=== PATIENT | female | born 1945 | race Caucasian/White ===

== ENCOUNTER → 2021-10-17 09:20 | Outpatient (CLI) | payer MEDICARE, OTHER, SELFPAY ==
[2021-10-17 10:46] LABS: Add Manual Diff / Slide Review NO; Basophils Absolute Auto 0 /uL (0-100); Basophils Percent Auto 0.4 % (0-2); Eosinophils Absolute Auto 600 /uL (0-450); Eosinophils Percent Auto 6.6 % (2-4); Hematocrit 37.8 % (36-46); Hemoglobin 12.8 g/dL (12.0-16.0); Lymphocytes Absolute Auto 2000 /uL (1100-4500); Lymphocytes Percent Auto 22.2 % (25-40); Mean Corpuscular HGB Conc 33.7 % (30-36); Mean Corpuscular Hemoglobin 29.2 PG (26-34); Mean Corpuscular Volume 86.5 fL (80-100); Monocytes Absolute Auto 700 /uL (0-900); Monocytes Percent Auto 8.2 % (3-14); Neutrophils Absolute Auto 5500 /uL (1500-7000); Neutrophils Percent Auto 62.6 % (50-75); Platelet Count 284 X10^3/uL (150-400); Red Blood Cell Count 4.37 X10^6/uL (4.0-5.2); Red Cell Distribution Width 14.1 % (11.6-14.8); White Blood Cell Count 8.8 X10^3/uL (4.5-11.0)
[2021-10-17 10:54] LABS: Appearance Urine UA CLEAR; Bilirubin Urine UA NEGATIVE (NEGATIVE); Color Urine UA YELLOW; Glucose Urine UA TRACE g/dL (Negative); Ketones Urine UA TRACE (NEGATIVE); Leukocyte Esterase Urine UA TRACE (NEGATIVE); Nitrite Urine UA NEGATIVE (Negative); Occult Blood Urine UA NEGATIVE (Negative); Protein Urine UA TRACE (Negative); Specific Gravity Urine UA >=1.030 (1.000-1.035); Urobilinogen Urine UA 0.2 E.U./dL (0.2)
[2021-10-17 11:00] LABS: BUN Creatinine Ratio 20.5 (6-22); Blood Urea Nitrogen 18 mg/dL (7-17); Carbon Dioxide 26 mmol/L (22-32); Chloride 107 mmol/L (98-107); Estimated Glomerular Filt Rate > 60 mL/min (>60); Glucose 150 mg/dL (80-110); HEMOLYSIS < 15 (0-50); Potassium 4.1 mmol/L (3.4-5.1); Sodium 141 mmol/L (137-145)
[2021-10-17 11:01] LABS: Hemoglobin A1C% w Est Avg Glu 6.6 % (4.0-6.0)
[2021-10-17 11:09] LABS: Bacteria Urine None Seen; Culture Indicated Urine Cult Not Indicated; RBC Urine None Seen (0-5/HPF); Urine Comments Microscopic Normal; WBC Urine None Seen (0-5/HPF)
== END ==
PROVIDERS: PCP Family Medicine; Referring Provider Orthopaedic Surgery; Visit Provider Orthopaedic Surgery
DX: Z01.818 Encounter for other preprocedural examination (principal); R73.9 Hyperglycemia, unspecified; Z01.812 Encounter for preprocedural laboratory examination; N39.0 Urinary tract infection, site not specified
CPT/HCPCS: 36415; 80048; 81001; 83036; 85025; 93005; 93010

== ENCOUNTER → 2021-11-07 09:49 | Outpatient (CLI) | payer MEDICARE, OTHER, SELFPAY ==
[2021-11-07 11:38] LABS: COVID19 -Nasal RAPID Negative (Negative)
== END ==
PROVIDERS: PCP Family Medicine; Referring Provider Orthopaedic Surgery; Visit Provider Orthopaedic Surgery
DX: Z20.822 Contact with and (suspected) exposure to COVID-19 (principal)
CPT/HCPCS: 87635; C9803

== ENCOUNTER 2021-11-08 06:03 | Day surgery (SDC) | payer MEDICARE, OTHER, SELFPAY ==
[2021-11-07 07:31] VITALS: BMI 25.0
[2021-11-08] VITALS (14 sets, daily range): BP systolic 109–173; BP diastolic 48–70; PULSE 55–73; RESP 12–20; TEMP 35.3–36.9; O2SAT 90–100; BMI 25.0
--- NOTE | 2021-11-08 06:40 | DI.RAD.S_ITS ---
PROCEDURE: XR HIP W PEL IF DONE LT 2V INDICATIONS: LEFT ANTERIOR HIP TECHNIQUE: 4 views of the hip were acquired. COMPARISON: None. FINDINGS: Intraoperative fluoroscopic views demonstrate total left hip replacement. IMPRESSION: Total left hip replacement. Dictated by: Rich Harrison M.D. on 11/08/2021 at 11:19 Approved by: Rich Harrison M.D. on 11/08/2021 at 11:20
[2021-11-08] MEDS: ACETAMINOPHEN 325 MG TABLET 975 MG PO (06:59)
[2021-11-08] MEDS: PREGABALIN 75 MG CAPSULE PO (06:59)
[2021-11-08] MEDS: CELECOXIB 200 MG CAPSULE PO (07:00)
[2021-11-08] MEDS: VANCOMYCIN 1,000 MG/200 ML PIGGYBACK 200 MG IV (07:06)
[2021-11-08] MEDS: LACTATED RINGERS 1,000 ML 42 ML IV ×2 (07:07→10:07)
--- NOTE | 2021-11-08 07:32 | PM.PREOP ---
Pre-operative Note COVID-19 COVID-19 status: Negative Interval Note History & Physical reviewed/Exam performed by Physician: Yes Changes to H&P: No
--- NOTE | 2021-11-08 07:33 | P.OP_ITS ---
Operative Date/Time/Diagnoses Date of procedure: 11/08/21 Time of procedure: 07:55 Pre-op diagnosis: left hip OA Post-op diagnosis: same Procedure & Clinicians Procedure: left total hip arthroplasty, anterior approach Same procedure as scheduled: Yes Indications: The patient has had progressively worsening left hip pain with radiographic lucy nges consistent with arthritis. Non-operative management has failed and the patient has requested total hip replacement. The risks, benefits and alternatives to surgery were discussed with the patient prior to proceeding. Risks discussed included, but were not limited to, failure to relieve pain, leg length discrepancy, dislocation, stiffness, infection, nerve damage, deep venous thrombosis, pulmonary embolism, stroke, coma, heart attack, permanent paralysis and , as well as the potential need for eventual revision of the prosthetic. Surgeon: Angella Chow [employer] Developer: Itz Robles Anesthesia Type: General and Spinal Operative Notes Findings: Severe left hip osteoarthritis with mild protrusio, good stability, adequate bone Closure Type: primary Specimen(s): none sent Prosthetic devices, grafts, tissues, transplants, or devices: Chow and nephew size 54 cup,one 6.5 mm screw, 36 x 54 neutral poly liner, 36- 3 Oxinium head, size 6 standard offset anthology Estimated Blood Loss (mL): 250 Blood products transfused: none Procedure in detail: The patient was brought to the operating room. Patient was carefully positioned in the supine position. Time-out was performed and antibiotics were given. Anesthesia was induced. She was positioned in the on the table in order to allow hyperextension of the hip. The left lower extremity was prepped and draped in a standard sterile fashion. An anterior left hip incision was made 1 fingerbreadth lateral to the anterior superior iliac spine and extended distally towards the greater trochanter. Dissection was carried out through skin and subcutaneous tissues. Superficial hemostasis was achieved. The fascia over the tensor fascia davina was defined and incised with a knife. Two Allis clamps were used to grasp the fascia. Tensor fascia davina was retracted laterally. A gelpi retractor was placed. Dissection was carried out down along the neck. The circumflex vessels were carefully identified and cauterized with the Aqua Mantis. There was good visualization of the femoral neck. A Cobra was placed superior to the neck and the gluteus fibers were carefully stripped from that superior aspect of the capsule. A 2nd retractor was placed along the inferior aspect of the neck. The rectus insertion along the capsule was partially released. A 3rd retractor that was then gently placed over the rim of the acetabulum under the rectus. Capsule was carefully incised and released from the intertrochanteric line circumferentially superior to the mid sagittal line and inferiorly to the mid sagittal line until the lesser trochanter was palpable. A tag stitch was placed both in the superior and inferior limb of the capsular insertion. Along the acetabulum capsule was also released up to the mid sagittal 12:00 position. A portion of the labrum was resected. A saw was used to perform an osteotomy at the level of the intertrochanteric line and the junction of the superior femoral neck leaving approximately 1 finger breath of residual inferior neck above the lesser trochanter. A 2nd cut was made along the femoral neck at the base of the head and a napkin ring of neck was removed. Corkscrew was placed in the femoral head and the head was removed without difficulty. Retractors were then repositioned around the acetabulum. Residual labrum was resected and additional osteophytes were removed. A reamer that was 4 mm below the templated size was placed by hand in the acetabulum and it was reamed to centralize the acetabulum. It was then reamed up to 2 under the templated size and fluoroscopy was brought in to confirm the position of the reaming and depth of reaming. I reamed 1 under the anticipated size. A trial cup was placed and noted that it was appropriately sized and fluoroscopy confirmed position and depth. The component was open and inserted without difficulty fluoroscopic imaging was used to confirm that the cup had been adequately seated and was well positioned. It was further stabilized with a single screw. Neutral poly liner was placed. The cup was tested and noted to be stable. Attention was then directed to the femur. The femur was gently hyperextended additional capsular release was performed as needed in order to allow adequate visualization of the proximal femur with elevation of the femur. Patient was placed in a hyperextended slightly adducted position with maximum external rotation. Box osteotome was used to check for any residual neck as well as sclerotic bone along the trochanter. [place] pepper was placed in the femur. Additional broaching was performed. Canal finder was used to determine the alignment of the canal and position. Size 1 broach was placed. The canal was then appropriately broached up to the templated size as long as there was adequate stability of the broach and serial advancement of the broach without excessive impingement. Specific attention was directed at avoiding varus attempting to direct the distal aspect of the broach more anteriorly and avoiding excessive anteversion. Trial reduction showed acceptable range of motion, good stability, no posterior impingement, hoahaoism of leg length and appropriate lateral shuck. I also hyperflexed the hip and checked that there was no impingement anteriorly and there was good stability with flexion, adduction and internal rotation. Marcaine and Exparel were injected. The stem was placed without difficulty. Repeat trial reduction and x-ray showed acceptable overall position, length, and no evidence of the femoral fracture. Final head was placed. Wound was meticulously irrigated with normal saline. The hip was reduced and additional Exparel and Marcaine were injected. The capsule was closed with interrupted nonabsorbable sutures. The fascia of the tensor was closed with interrupted and running Vicryl. No drain was placed. Any tensor fascia davina muscle that appeared to be contused or injured which was a minimal amount was carefully resected. Capsule around the tensor was injected with Exparel and Marcaine. The skin was closed with barbed stitches for the subcutaneous tissue and skin. We also used surgical glue. The wound was dressed sterilely. Brief Betadine soak was also used and was meticulously irrigated with normal saline. Patient was transferred to recovery room in satisfactory condition. Complications: none Post-operative Condition: stable Disposition: Acute Care Plan for aftercare: The patient will be maintained on a standard total hip replacement protocol with weight bearing as tolerated and anterior hip precautions. The patient will receive Aspirin and sequential compression devices for DVT prophylaxis. The patient will be discharged home when safe for the home environment.
--- NOTE | 2021-11-08 07:36 | SUR.PREOP ---
informed Dr. Chow of pt's allergy to PCN and pharmacy aware.
[2021-11-08] MEDS: CEFAZOLIN 2 GM/20 ML SYRINGE IV ×3 (07:55→23:51)
[2021-11-08] MEDS: TRANEXAMIC ACID 1,000 MG VIAL 1000 MG INJ ×2 (08:10→10:21)
--- NOTE | 2021-11-08 08:32 | SUR.OPER ---
Supine on padded [place] table with bilateral legs secured in padded positioning boots and wrapped in coban and suspended in positioning spars, operative leg in traction per surgeon. Head on one pillow. Arm on non-operative side secured on padded armboard <90 degrees abduction. Arm on operative side padded and resting across chest then secured with tape over sheet. Padded perineal post in place per surgeon.
[2021-11-08] MEDS: BUPIVACAINE LIPOSOME 266 MG/20 ML VIAL INJ (09:10)
[2021-11-08] MEDS: BUPIVACAINE 0.25% (PF) 60 ML, EPINEPHrine 0.3 MG INJ (09:23)
[2021-11-08] MEDS: SODIUM CHLORIDE IRRIG SOLUTION 250 ML, POVIDONE-IODINE SPONGE STICKS 1 APPLIC IRR (10:22)
--- NOTE | 2021-11-08 11:00 | DI.RAD.S_ITS ---
PROCEDURE: XR HIP W PEL IF DONE LT 2V INDICATIONS: LEFT TOTAL HIP TECHNIQUE: AP pelvis and lateral view of the left hip acquired. COMPARISON: [facility], NANDINI, XR HIP W PEL IF DONE LT 2V, 11/08/2021, 9:40. FINDINGS: Bones: Patient is status post left hip arthroplasty, with hardware components in expected positions. The hip joint appears congruent. The visualized bony structures appear intact. Note is made of prior right hip arthroplasty. Soft tissues: Overlying postoperative changes are noted. No suspicious soft tissue densities. IMPRESSION: Left hip arthroplasty with prosthesis in anatomic alignment. Dictated by: Sera Cornell M.D. on 11/08/2021 at 13:48 Approved by: Sera Cornell M.D. on 11/08/2021 at 13:49
--- NOTE | 2021-11-08 11:20 | SUR.PHASEI ---
Assumed care from SONIA Rodriguezay obtained, pt denied need for pain meds. Report called, pt transported up to room.
[2021-11-08] MEDS: LACTATED RINGERS 1,000 ML 125 ML IV ×2 (13:27→20:48)
--- NOTE | 2021-11-08 14:10 | PT.IIE ---
Current Diagnoses Unilateral primary osteoarthritis, left hip (11/08/21) Surgery Performed Operation Date: 11/08/21 07:45 Actual Procedures p Total Hip Arthroplasty/Anterior Approach(Left) - Angella Chow MD Medical History (Last Updated 11/07/21 @ 08:17 by Sarah Hernnadez RN) Acid reflux Arthritis Breast cancer (2001) Difficulty swallowing HTN (hypertension) Hx of thyroid irradiation (~2010) Myocardial infarction Osteoarthritis Polio Scoliosis Thyroid disease Physical Therapy Inpatient Evaluation/Re-Eval M1 PT/OT-IP Prior Functional Status Start: 11/08/21 15:32 Freq: NEEDED Status: Active Protocol: Document 11/08/21 14:10 AB (Rec: 11/08/21 15:45 AB [id number]) Medical Review Prior Functional Status Medical History Reviewed Yes Communication able to make needs known Mobility and Gait pt stated that she is modified independent with all mobiltiies and ambulation without AD but uses a SPC for long distance mobility Social History Household Members spouse Living Arrangements House Number of Floors (Floors) One Floor Number of Stairs To Enter/Railing? 2 steps without rails (has 2 bars on the edge of the door) Home Environment Standard Height Toilet,Walk in Shower Home Equipment Front Wheel Walker,Straight Cane,Raised Toilet Seat w/ Armrests,Shower Seat without Backrest,Hand Held Shower,Grab Bars In Shower M2 PT-IP Current Condition Start: 11/08/21 15:32 Freq: NEEDED Status: Active Protocol: Document 11/08/21 14:10 AB (Rec: 11/08/21 15:45 AB [id number]) Physical Therapy Current Condition Current Condition Evaluation Date 11/08/21 Treatment Diagnosis s/p L MISBAH anterior approach; difficulty in walking Onset Date 11/08/21 M3 PT-IP Subjective Start: 11/08/21 15:32 Freq: NEEDED Status: Active Protocol: Document 11/08/21 14:10 AB (Rec: 11/08/21 15:45 AB [id number]) Subjective Physical Therapy Visit Type Type Initial Evaluation Visit Start Time 14:10 Visit Stop Time 14:56 Total Visit Minutes 46 Number of LEACHER Visits 0 Physical Therapy Visit Comments Patient Comments agreeable to do PT Therapy Pain Assessment Pain Present Pain Present Denied Pain M4 PT-IP Mobility and Gait Start: 11/08/21 15:32 Freq: NEEDED Status: Active Protocol: Document 11/08/21 14:10 AB (Rec: 11/08/21 15:45 AB [id number]) PT-Bed Mobility Assessment Supine to Sit Supine to Sit Maximum Assistance,1 Person Assistance Sit to Supine Sit to Supine Moderate Assistance,1 Person Assistance PT-Transfer Assessment Sit to and From Stand Sit to and from Stand Minimal Assistance,1 Person Assistance,Use of Upper Extremities Equipment Transfer Assistive Device Gait Belt,Front Wheeled Walker Orthotic/Prosthetic Devices or Brace: No Comments Mobility Comments educated pt on hip precautions anterior. pt completed supine to sit max A and max cues. stated that she had L mastectomy before with LUE lymphedema and had difficulty pushing with LUE. Initial c/o dizziness but dissipated. BP: 135/56. able to sit on EOB SBA. pt stated that L hip anterior thigh sensation is less. completed sit to stand min A and cues. ambulated in room ~ 30 ft using FWW mod A with LOB x 1. pt stated that she just felt her LLE was wobbly. pt requested to go back to bed. completed sit to supine min A with LE elevation . positioned pt in bed. call light able table placed within reach. Gait Assessment Gait Gait Assistance Required: Moderate Assistance,1 Person Assist Distance (Feet) 30 Able to Maintain Weight Bearing Status Yes During Gait Assistive Devices Assistive Device Gait Belt,Front Wheeled Walker Orthotic/Prosthetic Devices or Brace: No Gait Deviations General Gait Pattern Antalgic,Decreased Stride Length,Decreased Feet Clearance Factors Limiting Gait Function Factors Limiting Gait Function Decreased Activity Tolerance, Decreased Sensation,Decreased Strength,Difficulty Following Directions,Limited Range of Motion,Poor Balance,Poor Safety Awareness PT-Balance Assessment Sitting Balance and Reactions Static Sitting Balance Ability Good Dynamic Sitting Balance Ability Good Standing Balance and Reactions Static Standing Balance Ability Fair Dynamic Standing Balance Ability Fair Device Used FWW M5 PT-IP Objective Assessments Start: 11/08/21 15:32 Freq: NEEDED Status: Active Protocol: Document 11/08/21 14:10 AB (Rec: 11/08/21 15:45 AB [id number]) Orientation Orientation/Cognition Level of Alertness Alert Orientation Name,Age,Birthday,Month,Date, Year,Day of Week,Place, Situation Safety Awareness Decreased Safety Awareness Memory Description No Deficits Noted Gross Range of Motion Lower Extremity ROM Assessment Within Functional Limits Strength Lower Extremity Strength Assessment Left Impaired Hip 3+/5 Knee 4-/5 Coordination Assessment Gross Coordination Gross Coordination WNL Sensation Assessment Sensation Gross Sensation Left LE Impaired Light Touch Impaired Sensation Description Numbness Muscle Tone Muscle Tone WNL Yes M6 PT-IP Treatment Start: 11/08/21 15:32 Freq: NEEDED Status: Active Protocol: Document 11/08/21 14:10 AB (Rec: 11/08/21 15:45 AB [id number]) Physical Therapy Treatment Education Education Provided Precautions,Weight Bearing Status,Post-Op Packet,Safety M7 PT-IP Assessment and Plan Start: 11/08/21 15:32 Freq: NEEDED Status: Active Protocol: Document 11/08/21 14:10 AB (Rec: 11/08/21 15:45 AB [id number]) PT Summary Assessment and Plan Potential Rehabilitation Potential Good Status of Condition at Evaluation Evolving Summary Impairments Pain,ROM,Strength,Balance, Coordination,Sensation,Tone, Cognition,Bed Mobility, Transfers,Gait,Activity Tolerance Assessment Summary pt requiring max A with bed mobility, mod A for ambulation using FWW. pt plans to go home with spouse to assist her . caregiver training set up tomorrow 1030 am. will continue to assess progress. Goals Bed Mobility Goal Independent Transfer Goal Independent,Front Wheeled Walker Gait Goal Independent,Front Wheel Walker Gait Distance 200 Other Goals up/down 2 steps using SPC/SOCIAL WORK FACULTY MEMBER min A Days to Meet Goals 5 Frequency of Treatment Frequency Of Treatment Twice a Day Treatment Plan Physical Therapy Treatment Plan Bed Mobility Training,Transfer Training,Gait Training, Therapeutic Exercise,Balance Retraining,Post Op Education, Discharge Planning,Hot or Cold Pack,Neuromuscular Re-ed, Coordination Retraining,Manual Therapy Precautions Anterior Hip Precautions No Hip Extension,No Hip External Rotation Weight Bearing Status Weight Bearing Status Weight Bear as Tolerated Allowed Weight Bearing Amount (enter % LLE WBAT or #) (%) Recommendations To Nursing Amount of Assist Needed 1 Person Assist Discharge Recommendations PT Discharge Recommendations Home with Assistance, Outpatient PT Transportation Needs at Discharge Private Vehicle
[2021-11-08] MEDS: lisinopriL 20 MG TABLET PO (16:20)
[2021-11-08] MEDS: IBUPROFEN 400 MG TABLET PO ×2 (16:20→22:17)
[2021-11-08] MEDS: carvediloL 12.5 MG TABLET 25 MG PO (20:46)
[2021-11-08] MEDS: DOCUSATE 100 MG CAPSULE PO (20:47)
[2021-11-08] MEDS: AMLODIPINE 5 MG TABLET PO (20:47)
[2021-11-08] MEDS: ASPIRIN EC 81 MG TABLET PO (20:47)
[2021-11-08] MEDS: ACETAMINOPHEN 325 MG TABLET 650 MG PO (22:16)
[2021-11-09 04:52] LABS: Hematocrit 29.3 % (36-46)
[2021-11-09] MEDS: IBUPROFEN 400 MG TABLET PO (05:13)
[2021-11-09] MEDS: ACETAMINOPHEN 325 MG TABLET 650 MG PO (05:13)
[2021-11-09 05:17] VITALS: BP 168/61; PULSE 72; RESP 18; TEMP 36.3; O2SAT 96
--- NOTE | 2021-11-09 07:54 | PM.DS.1 ---
History of Present Illness History of Present Illness Date Patient Seen: 11/09/21 Time Patient Seen: 07:55 Chief complaint: Hip pain Narrative: Patient states her hip pain is mild. Denies fever or chills. No nausea vomiting. Patient did well with physical therapy yesterday afternoon. Discharge Providers Provider Discharge Date: 11/09/21 Primary care physician: Jefe Leal MD Consults: 11/08/21 06:40 Consult to Anesthesiology Routine Comment: Consulting Provider: Anesthesiologist Reason for consultation: Regional block for post operative pain control 11/08/21 12:36 Consult to Discharge Planning Routine Comment: Consult to Physical Therapy Evaluate & Treat Comment: Physician Instructions: post op MISBAH protocol Consult to Respiratory Therapy Evaluate & Treat Comment: Physician Instructions: Evaluate and treat Discharge provider: Itz Robles PA-C Summary Hospital Course Discharge Diagnosis: Left hip osteoarthritis Hospital Course: left total hip arthroplasty, anterior approach Same procedure as scheduled: Yes Indications: The patient has had progressively worsening left hip pain with radiographic changes consistent with arthritis. Non-operative management has failed and the patient has requested total hip replacement. The risks, benefits and alternatives to surgery were discussed with the patient prior to proceeding. Risks discussed included, but were not limited to, failure to relieve pain, leg length discrepancy, dislocation, stiffness, infection, nerve damage, deep venous thrombosis, pulmonary embolism, stroke, coma, heart attack, permanent paralysis and , as well as the potential need for eventual revision of the prosthetic. Surgeon: Angella Chow Credit And Collection Manager: Itz Robles Anesthesia Type: General and Spinal Operative Notes Findings: Severe left hip osteoarthritis with mild protrusio, good stability, adequate bone Closure Type: primary Specimen(s): none sent Prosthetic devices, grafts, tissues, transplants, or devices: Chow and nephew size 54 cup,one 6.5 mm screw, 36 x 54 neutral poly liner, 36- 3 Oxinium head, size 6 standard offset anthology Estimated Blood Loss (mL): 250 Blood products transfused: none Patient admitted to the hospital for left total hip arthroplasty, anterior approach. Patient consented to the same. Patient taken to operating room November 08, 2021. Patient back in her room recovering well as in stable condition status post left total hip arthroplasty. Patient will be discharged home today in stable condition. Exam Vital Signs (past 8 hours): - 11/09/21 05:17 Temperature 97.4 F L Pulse Rate 72 Respiratory Rate 18 Blood Pressure 168/61 H Pulse Oximetry 96 Oxygen Delivery Method Room Air Oxygen Flow Rate 0 Narrative Exam Narrative: Pleasant 76-year-old female resting comfortably in bed in no apparent distress. Left hip dressing is Clean, dry, intact.. Motor functions intact bilateral lower extremities. Sensation grossly intact to light touch bilateral lower extremities. Objective Labs Result Diagrams: 11/09/21 04:35 Labs: Laboratory Results - last 24 hr 11/09/21 04:35 Hgb 10.0 L Hct 29.3 L PFSH Medical History Acid reflux Arthritis Breast cancer (2001) Difficulty swallowing HTN (hypertension) Hx of thyroid irradiation (~2010) Myocardial infarction Osteoarthritis Polio Scoliosis Thyroid disease Surgical History H/O mastectomy (2001) History of bilateral carpal tunnel release History of surgical removal of ganglion cyst History of total right hip arthroplasty (01/2021) Hx of abdominal surgery Hx of bilateral cataract extraction (~2017) Hx of cholecystectomy (1984) Hx of heart artery stent Hx of left inguinal hernia repair Social History household members: spouse Smoking Status: Former smoker alcohol intake: never Discharge Assessment & Plan Assessment and Plan Assessment: Patient progressing as expected status post left total hip arthroplasty, anterior approach Plan of Treatment: Mobilize with physical therapy, anterior hip precautions Multimodal pain management Discharge home today after physical therapy. Discharge Plan Discharge Plan Patient Disposition: Home Provider Discharge Comment: Discharge to home if able to urinate and get out of bed and ambulate. Discharge orders & Medications Discharge Orders: Discharge (Order); Ordered 11/09/21 Ordered By: Itz Robles Prescriptions: New acetaminophen 325 mg Tablet 650 mg PO Q6HR Qty: 60 0RF polyethylene glycol 3350 17 gram Powder In Packet 17 gm PO DAILY PRN (Reason: Constipation) Qty: 20 0RF aspirin 81 mg Tablet,Delayed Release (Dr/Ec) 81 mg PO BID Qty: 60 0RF oxycodone 5 mg Tablet 5 mg PO Q3HR PRN (Reason: Pain, Moderate (4-6)) Qty: 60 0RF Continued amlodipine 5 mg Tablet 5 mg PO BID 0RF omeprazole 20 mg Capsule,Delayed Release(Dr/Ec) 20 mg PO QPM 0RF Label Comments: Usually takes around 7pm levothyroxine 200 mcg Tablet 200 mcg PO DAILY 0RF carvedilol 25 mg Tablet 25 mg PO BID 0RF Rx Instructions: must administer with a meal/food lisinopril 20 mg Tablet 20 mg PO QPM 0RF Label Comments: Usually takes around 7pm Discontinued naproxen sodium [Aleve] 220 mg Capsule 440 mg PO DAILY PRN (Reason: Pain) 0RF Follow up/Referrals: Jefe Leal MD [Primary Care Provider] - Angella Chow MD [Physician] - (Two weeks) Diet/Activity/Treatments Diet: Diet as Tolerated Activity: Walk multiple times a day. Avoid falls. Okay to put full weight on hip. Cold/Heat Therapy: Use lots of ice for up to 20 minutes on hip. Skin/Wound/Dressing Care Report to your healthcare provider any signs of infection, such as:: chills, fever, night sweats, increased pain, unusual drainage and unusual redness Dressing: Leave dressing on. Okay to shower. Other wound treatment: Apply ice to hip multiple times a day. Visit Report/Discharge Packet Instructions: DI for Hip Replacement Stand Alone Forms: Surgery Discharge Discharge Data Primary Care Provider: Jefe Leal Attending Provider: Angella Chow
[2021-11-09 08:00] VITALS: BP 148/60; PULSE 71; RESP 16; TEMP 36.2; O2SAT 96
[2021-11-09] MEDS: DOCUSATE 100 MG CAPSULE PO (08:27)
[2021-11-09] MEDS: ASPIRIN EC 81 MG TABLET PO (08:27)
[2021-11-09 08:28] VITALS: BP 148/60; PULSE 71
[2021-11-09] MEDS: carvediloL 12.5 MG TABLET 25 MG PO (08:28)
[2021-11-09] MEDS: LEVOTHYROXINE 100 MCG TABLET 200 MCG PO (08:29)
[2021-11-09] MEDS: AMLODIPINE 5 MG TABLET PO (08:29)
--- NOTE | 2021-11-09 08:57 | CM.DANOTE ---
DCP: Payor: Medicare PCP: Jefe Leal MD Pt is a 76 y.o. F admitted for status post Left hip arthroplasty. Pt had right hip replacement in January of 2021. Pt has a history of arthritis, breast cancer, heart disease, scoliosis, and thyroid disease. Pt surgery date 11/08/21. Per , pt medically stable for discharge home. DCP met with patient this morning. Pt sitting up in bed watching tv. DCP explained role. Pt states she is independent at baseline and her spouse, Mayo, is her main support at home. Mayo is also fully independent. Pt and pt spouse still drive POV. Pt states she owns walker, can, toilet seat and rise, and bath equipment. Pt states she had a right hip replacement last year so she knows the drill for this time. Pt worked with PT yesterday and she did well. Pt to work with pt today before discharge. Pt declines any needs or resources at this time. Pt state she has an appointment with outpatient PT in two weeks. P: Pt to discharge home via spouse POV. No other needs required at this time. Meaghan Luna RN/SAROJ Discharge Planning/Care Management CM Discharge Assessment Start: 11/09/21 08:55 Freq: Status: Active Protocol: Document 11/09/21 08:56 CLARE (Rec: 11/09/21 08:56 AJ [id number]) Discharge Planning Assessment Assigned Forest Fire Fighter Meaghan Luna RN/SAROJ Advance Directives? Yes Advance Directives on File No History Provided By Patient Prior Living Arrangements House Household Members spouse Type of transporation used prior to Drives own vehicle admit Willing to Return to Facility? No Independent with ADL's Yes Is patient alert and oriented? Yes DME Already Rented / Owned Bath Bench,FWW / Walker,Cane Comment Toilet seat riser Barriers to Discharge No Discharge Plan Home Referrals Initiated None needed Whiteboard Updated in Patient Room with Yes name and ext. # of Forest Fire Fighter Comment Instructed pt to call Review Status In Process Please Provide Date Initial DC 11/09/21 Assessment Was Performed Next Review Type Continued Stay Review Pre-Anesthesia Assessment Start: 11/03/21 13:58 Freq: Status: Active Protocol: Document 11/07/21 07:31 CAB (Rec: 11/03/21 14:06 CAB [id number]) Pre-Anesthesia Assessment Preferred Name Sarah Patient Information Reviewed Via Phone Assessment Assessment Completed With Patient H&P Completed Within 30 Days Yes Diagnostic Results BMP/CMP,CBC,EKG,Urinalysis Comment Lab/ECG @ 10/17/21, COVID screen @ 11/07/21 Primary Care Provider Jefe Leal Seen Specialist in Last 12 Months Yes Specialist Seen Orthopedist Primary Language Divehi Software Tester Required No Height 170.18 cm Weight 72.575 kg Body Mass Index (BMI) 25.0 Hearing Ability Normal Visual Assist Glasses Dentition Type Teeth, Natural Present Barriers to Learning None Hx Anesthesia Reactions No Hx Family Anesthesia Reaction No Hx Malignant Hyperthermia No Hx Blood Transfusions No Anesthesia Review Requested No alcohol intake never Smoking Status Former smoker how long ago did patient quit smoking Quit in the 60's Substance Use Type does not use Pain Present Pain Reported Musculoskeletal Symptoms Abnormal Gait,Back Pain, Difficulty Walking,Joint Pain History of Falling (Recent or History of No ) Patient is completely paralyzed or No completely immobile Prosthesis or Orthotic Device Cane Mental Status Oriented to own ability Is patient on oxygen? No Does patient have CORBETT/SOB No Hx Sleep Apnea No Currently Taking a Beta Lilo Yes: Carvedilol Can You Climb a Flight of Stairs Without Yes SOB Hx Chest Pain No Hx SOB No Hx Syncope or Dizziness No Anti-Coagulant Therapy No Has a Automobile Washer Steam No: Pt states she no longer follows with cardiology Cardiac Testing No Hx Pacemaker/ICD No Pacemaker Rep Required? No Cardiac Clearance Received Not Applicable Diet Type At Home Regular dysphagia No Gastrointestinal Symptoms Reflux Urinary Catheter Present No Hx Urinary Self Catheterization No Diabetes Yes: Diabetes by A1c-pt states PCP is fine with my numbers HgbA1C 6.6 Date 10/17/21 Patient No Lactating No Hx Drug Resistant Organism No Presence of External or Internal Medical Yes: Right hip, bilat eye IOLs Devices , heart stents Have you had any close contact with No someone diagnosed with COVID-19? Received a COVID vaccine? Yes Received all doses? Yes Marital Status Lives With spouse Prior Living Arrangements House Number of Floors (Floors) One Floor Support System Spouse Does the Patient Have Assistance After Yes Surgery Patient Discharge Plan Description Return Home Comment Pt advised same day surgery per surgeon Feels Safe in Current Environment Yes Been Physically Hurt or Threatened By a No Person in Current Environment Do you have thoughts of harming yourself None or others? Are you currently considering suicide? No Do you have a plan to hurt yourself or No Plan others? Do You Have Any Spiritual Beliefs That No May Affect Your HC Choices? Do You Have Any Cultural Practices That No May Affect Your HC Choices? Comment Denominational Who Can We Speak to About Patient's Care Family, friends Identifying Code for Release of Patient Declines to issue Information Health Care Proxy/Next of Kin Mayo () Health Care Proxy Emergency Contact Name Mayo () Emergency Contact Advance Directives? Yes Advance Directives on File No Requested Patient Bring Advanced Yes Directives DOS Power of Automotive Lube Technician Yes Power of Automotive Lube Technician Name Mayo () Power of Automotive Lube Technician PAC Instructions Do not shave/clip surgical site,Durable medical equipment ,Medications to take/avoid, Nasal antibiotic,No ETOH/ petroleum product on skin DOS, NPO,Pre-surgical wash,Sturdy shoes/comfortable clothes,Do not bring valuables and remove jewelry Comment Pt states she was not given nasal abx or surgical scrub prior to surgery
--- NOTE | 2021-11-09 10:42 | PT.IPTN ---
Current Diagnoses Unilateral primary osteoarthritis, left hip (11/08/21) Surgery Performed Operation Date: 11/08/21 07:45 Actual Procedures p Total Hip Arthroplasty/Anterior Approach(Left) - Angella Chow MD Physical Therapy Treatment Note M2 PT-IP Current Condition Start: 11/08/21 15:32 Freq: NEEDED Status: Active Protocol: Document 11/08/21 14:10 AB (Rec: 11/08/21 15:45 AB [id number]) Physical Therapy Current Condition Current Condition Evaluation Date 11/08/21 Treatment Diagnosis s/p L MISBAH anterior approach; difficulty in walking Onset Date 11/08/21 M3 PT-IP Subjective Start: 11/08/21 15:32 Freq: NEEDED Status: Active Protocol: Document 11/09/21 10:21 KS (Rec: 11/09/21 11:28 KS [id number]) Subjective Physical Therapy Visit Type Type Treatment Note Visit Start Time 10:21 Visit Stop Time 10:42 Total Visit Minutes 21 Notes Spouse present for caregiver training Number of CHEMICAL PROCESSING LABORER Visits 1 Physical Therapy Visit Comments Patient Comments agreeable to do PT M4 PT-IP Mobility and Gait Start: 11/08/21 15:32 Freq: NEEDED Status: Active Protocol: Document 11/09/21 10:21 KS (Rec: 11/09/21 11:28 KS [id number]) PT-Bed Mobility Assessment Scooting Scooting to Edge of Bed Standby Assistance PT-Transfer Assessment Sit to and From Stand Sit to and from Stand Standby Assistance,Use of Upper Extremities Equipment Transfer Assistive Device Gait Belt,Front Wheeled Walker Orthotic/Prosthetic Devices or Brace: No Transfers Transfer Destination Wheelchair Transfer Technique Pt ambulated Transfer Ability Level of Assist Contact Guard Assistance, Minimal Assistance,1 Person Assistance,Use of Upper Extremities Comments Mobility Comments Pt in chair upon arrival w/ in room. SBA for sit<> stand w/ FWW. Pt then ambulated ~25 ft to w/c in hallway. Transported to practice stairs in w/c for energy conservation. Pt then ascended/descended 3 steps w/ bilateral rails w/ cues for sequencing and providing CGA. Pt then ambulated ~50 ft towards room and used w/c for remaining distance. Pt left in w/c w/ all needs in reach. Gait Assessment Gait Gait Assistance Required: Contact Guard Assist,1 Person Assist Distance (Feet) 50 Able to Maintain Weight Bearing Status Yes During Gait Assistive Devices Assistive Device Gait Belt,Front Wheeled Walker Orthotic/Prosthetic Devices or Brace: No Gait Deviations General Gait Pattern Antalgic,Decreased Stride Length,Decreased Feet Clearance Factors Limiting Gait Function Factors Limiting Gait Function Decreased Activity Tolerance, Decreased Strength,Limited Range of Motion,Pain,Poor Balance Comments Gait Comments Good use of FWW, no LOB. Limited by pain and weakness. Stair Climbing Assessment Evaluation Level of Assist On Stairs Contact Guard Assistance,1 Person Assistance Devices Stair Climbing Assistive Devices Left Railing,Right Railing Technique/Endurance Stair Climbing Direction Ascend and Descend Stair Climbing Technique Step to Step Number of Steps Climbed 3 Stair Climbing Set # Repetitions (reps) 1 Comments Stair Climbing Comments Pt ascended/descended 3 steps w/ bilateral hand rails and step to pattern w/ cues for sequencing and provding CGA. PT-Balance Assessment Sitting Balance and Reactions Static Sitting Balance Ability Good Dynamic Sitting Balance Ability Good Standing Balance and Reactions Static Standing Balance Ability Good Dynamic Standing Balance Ability Fair Device Used FWW M5 PT-IP Objective Assessments Start: 11/08/21 15:32 Freq: NEEDED Status: Active Protocol: Document 11/08/21 14:10 AB (Rec: 11/08/21 15:45 AB [id number]) Orientation Orientation/Cognition Level of Alertness Alert Orientation Name,Age,Birthday,Month,Date, Year,Day of Week,Place, Situation Safety Awareness Decreased Safety Awareness Memory Description No Deficits Noted Gross Range of Motion Lower Extremity ROM Assessment Within Functional Limits Strength Lower Extremity Strength Assessment Left Impaired Hip 3+/5 Knee 4-/5 Coordination Assessment Gross Coordination Gross Coordination WNL Sensation Assessment Sensation Gross Sensation Left LE Impaired Light Touch Impaired Sensation Description Numbness Muscle Tone Muscle Tone WNL Yes M6 PT-IP Treatment Start: 11/08/21 15:32 Freq: NEEDED Status: Active Protocol: Document 11/09/21 10:21 KS (Rec: 11/09/21 11:28 KS [id number]) Physical Therapy Treatment Education Education Provided Precautions,Weight Bearing Status,Post-Op Packet,Safety Other Treatments Other Treatment Performed Discussed at home safety. Completed caregiver training. M7 PT-IP Assessment and Plan Start: 11/08/21 15:32 Freq: NEEDED Status: Active Protocol: Document 11/09/21 10:21 KS (Rec: 11/09/21 11:28 KS [id number]) PT Summary Assessment and Plan Potential Rehabilitation Potential Good Status of Condition at Evaluation Evolving Summary Impairments Pain,ROM,Strength,Balance, Coordination,Sensation,Tone, Cognition,Bed Mobility, Transfers,Gait,Activity Tolerance Assessment Summary Successfully completed caregiver training w/ pts who was able tp provide appropriate assist to pt when needed. Pt ambulated ~ 50 ft and ascended/descended 3 steps. She and her feel safe and eager to return home. She will beenfit from OPPT to improve strength, ROM, and gait. Goals Bed Mobility Goal Independent Transfer Goal Independent,Front Wheeled Walker Gait Goal Independent,Front Wheel Walker Gait Distance 200 Other Goals up/down 2 steps using SPC/ASSEMBLY MACHINE FEEDER min A Days to Meet Goals 5 Frequency of Treatment Frequency Of Treatment Twice a Day Treatment Plan Physical Therapy Treatment Plan Bed Mobility Training,Transfer Training,Gait Training, Therapeutic Exercise,Balance Retraining,Post Op Education, Discharge Planning,Hot or Cold Pack,Neuromuscular Re-ed, Coordination Retraining,Manual Therapy Precautions Anterior Hip Precautions No Hip Extension,No Hip External Rotation Weight Bearing Status Weight Bearing Status Weight Bear as Tolerated Allowed Weight Bearing Amount (enter % LLE WBAT or #) (%) Recommendations To Nursing Amount of Assist Needed 1 Person Assist Discharge Recommendations PT Discharge Recommendations Home with Assistance, Outpatient PT Transportation Needs at Discharge Private Vehicle
--- NOTE | 2021-11-09 11:38 | PC.NURSE ---
Pt is A&Ox3, VSS, afebrile on RA she reports pain is tolerable at 1-3/10 and is ambulating with steady gait. She denies numbness, or altered sensation to L LE. CMS+. She has good po intake, is able to ambulate and void with out difficulty. She is cleared for discharge this a.m. pending career and transition teacher training with /caregiver this a.m. at 1030. She is cleared by PT/OT and verbalizes understanding of discharge medications, activity, site care, as well as s/sx of infection or complications as well as follow up instructions. She is escorted via wheel chair to private vehicle with her at 1055 with all of her belongings.
== END 2021-11-09 10:55 | disposition home or self-care (01) ==
LOC: OR 06:05 → AC 06:06
PROVIDERS: PCP Family Medicine; Referring Provider Orthopaedic Surgery; Visit Provider Orthopaedic Surgery
PROC: (CPT 27130; principal; 2021-11-08 07:45)
DX: M16.12 Unilateral primary osteoarthritis, left hip (principal); I25.10 Atherosclerotic heart disease of native coronary artery without angina pectoris; I10 Essential (primary) hypertension; K21.9 Gastro-esophageal reflux disease without esophagitis
CPT/HCPCS: 27130; 36415; 73502; 76000; 85014; 85018; 97116; 97162; 97530; C1776; C9290; J0171; J0690; J2250; J2704; J3010

== ENCOUNTER → 2021-12-23 10:41 | Outpatient (CLI) | payer MEDICARE, OTHER, SELFPAY ==
[2021-11-08 16:22] VITALS: BMI 25.0
[2021-12-23 12:48] LABS: BUN Creatinine Ratio 16.9 (6-22); Blood Urea Nitrogen 14 mg/dL (7-17); Estimated Glomerular Filt Rate > 60 mL/min (>60)
--- NOTE | 2021-12-23 13:39 | DI.CT.S_ITS ---
PROCEDURE: CT CHEST W CON INDICATIONS: EVAL L CHEST WALL MASS/H O MASS/BREAST CANCER TECHNIQUE: After the administration of intravenous contrast, 5 mm thick sections acquired from the pulmonary apices to the posterior costophrenic angles. 1 mm axial lung, 5 mm thick coronal and sagittal reformats and 7 mm axial MIP were acquired. For radiation dose reduction, the following was used: automated exposure control, adjustment of mA and/or kV according to patient size. COMPARISON: None. FINDINGS: Image quality: Excellent. Lungs and pleura: There are multiple lung nodules bilaterally. Afterschool nodules are listed in the following: Nodule 1: 7 mm; right upper lobe; series 4, image 81. Nodule 2: 0.9 x 1.3 cm; right lower lobe; series 4, image 189. Nodule 3: 1.0 cm; left lower lobe; series 4, image 268. There are multiple noncalcified pleural nodules involving the right hemithorax. No pleural effusions. Moderate centrilobular emphysema. No acute air space opacities. Central and peripheral airways are patent and normal in caliber. Mediastinum: Heart size is normal. Mild coronary artery calcification. No pericardial effusion. No mediastinal or hilar adenopathy by size criteria. Thoracic aorta and central pulmonary arteries are normal in size. Esophagus is normal in caliber. Small hiatal hernia. Bones and chest wall: There are postsurgical changes related to left mastectomy. There is a lobulated mass in the left upper anterior chest wall abutting the left clavicle measuring 4.8 x 5.9 x 4.0 cm; this correlates with the palpable abnormality. The mass demonstrates heterogeneous attenuation and enhancement. Mildly enlarged left axillary lymph nodes are present measuring up to 1.2 x 1.4 cm. Irregular soft tissue in right breast may be scattered fibroglandular densities. No discrete right breast mass. No suspicious bony lesions. No vertebral body compression fractures. Thyroid gland is normal. Abdomen: There is a splenule anterior to spleen. Mild hepatic steatosis. Diverticulosis. No diverticulitis. IMPRESSION: 1. A large loculated mass in the left upper anterior chest wall measuring 4.8 x 5.9 x 4.0 cm. In this patient with history of breast cancer and left mastectomy, this is highly suspicious for recurrent breast cancer. This mass is amenable for ultrasound-guided percutaneous biopsy. 2. Left axillary lymphadenopathy suspicious for dago metastasis. 3. There are multiple lung nodules bilaterally, concerning for neoplasm such as pulmonary metastasis or lung cancers. Recommend PET-CT for further evaluation. 4. Multiple noncalcified pleural nodules in the right hemithorax. These nodules can be evaluated by PET-CT at same time. 5. Moderate centrilobular emphysema. Dictated by: Sera Cornell M.D. on 12/23/2021 at 14:41 Approved by: Sera Cornell M.D. on 12/23/2021 at 15:06
== END ==
PROVIDERS: PCP Family Medicine; Referring Provider Orthopaedic Surgery; Visit Provider Orthopaedic Surgery
DX: R22.2 Localized swelling, mass and lump, trunk (principal); R91.8 Other nonspecific abnormal finding of lung field; R59.0 Localized enlarged lymph nodes; R79.89 Other specified abnormal findings of blood chemistry; Z85.3 Personal history of malignant neoplasm of breast; J43.2 Centrilobular emphysema; I25.10 Atherosclerotic heart disease of native coronary artery without angina pectoris; K76.0 Fatty (change of) liver, not elsewhere classified; K57.90 Diverticulosis of intestine, part unspecified, without perforation or abscess without bleeding; Z90.12 Acquired absence of left breast and nipple
CPT/HCPCS: 36415; 71260; 82565; 84520; Q9967

== ENCOUNTER → 2024-04-08 10:54 | Outpatient (CLI) | payer MEDICARE, OTHER, SELFPAY ==
[2021-11-08 16:22] VITALS: BMI 25.0
--- NOTE | 2024-04-08 10:57 | DI.CT.S_ITS ---
PROCEDURE: CT CHEST W CON INDICATIONS: PAIN IN SHOULDER TECHNIQUE: After the administration of intravenous contrast, 5 mm thick sections acquired from the pulmonary apices to the posterior costophrenic angles. 1 mm axial lung, 5 mm thick coronal and sagittal reformats and 7 mm axial MIP were acquired. For radiation dose reduction, the following was used: automated exposure control, adjustment of mA and/or kV according to patient size. COMPARISON: [facility], CT, CT CHEST W CON, 12/23/2021, 13:26. FINDINGS: Image quality: Diagnostic. Lower Neck: No enlarged lymph nodes. Thyroid: No thyroid nodules which require sonographic follow up, per consensus guidelines. Axillae: No enlarged lymph nodes. Chest Wall: Interval decrease in the size of a large lobulated mass in the left upper anterior chest wall. It previously measured 3.9 x 4.8 x 4.8 cm. Reference previous images 26 of series 6 and 12 of series 3. It currently measures 3.8 x 4.0 x 3.0 cm. Reference images 32 of series 6 and 33 of series 3. Left breast is surgically absent. Question developing subareolar mass in the right breast. There is an enhancing lesion now on image 62 of series 3 measuring 1.4 x 0.8 cm in the subareolar region. 4 was previously described as suspicious left axillary adenopathy appears to represent prominent valves in the axillary vein. Bones: Unremarkable. Lungs and Pleura: No pneumothorax or pleural effusions. Interval development of a 1.8 cm mildly spiculated right apical mass on image 88 of series 4. A pleural based nodule in the posterior right upper lobe on previous image 87 of series 4 and current image 120 of series 4 has increased in size, previously approximately 3 mm, and now approximately 7 x 10 mm. A spiculated nodular density in the anterior basal segment of the right lower lobe has increased in size, previously measuring approximately 0.8 cm on prior image 190 of series 4 and currently measuring 1.6 x 0.7 cm on current image 199 of series 4. Development of multilobulated pleural thickening along the medial pleura of the right hemithorax suspicious for pleural involvement by metastatic disease. Reference sales representative jewelry image 141 of series 3. No in Heart: Heart size is normal. Coronary artery stents. Min Pat on really not a [employer] company for any body and K a and really No pericardial effusion. Thoracic Vessels: The aorta and pulmonary arteries demonstrate normal size. Mediastinum and Marjorie: Development of bilateral hilar malignant adenopathy. On image 67 of series 3 there is a right hilar lymph node measuring 1.5 x 2.0 cm as well as a left hilar lymph node measuring 2.6 x 1.9 cm. There is also development of malignant subcarinal adenopathy. On image 61 of series 3 is a subcarinal lymph node measuring 2.2 x 1.6 cm. Esophagus: No wall thickening. No hiatal hernia. Upper Abdomen: Visualized upper abdomen solid organs and bowel loops appear normal. IMPRESSION: 1. The left upper chest lobulated mass has decreased in size. 2. What was previously described as left axillary adenopathy appears to represent prominent venous valves in the left axillary vein. 3. Remote left mastectomy. 4. Suspect development of a subareolar malignant mass in the contralateral right breast. 5. Definite interval progression of pulmonary metastatic disease. For instance, a new 1.8 cm right apical mass has developed. Other pulmonary parenchymal lesions have increased in size. Additionally, there appears to be malignant involvement in the medial pleura of the right hemithorax. 6. Development of malignant hilar and subcarinal adenopathy. Dictated by: Jayme Jain M.D. on 04/08/2024 at 20:28 Approved by: Jayme Jain M.D. on 04/08/2024 at 20:44
--- NOTE | 2024-04-08 10:58 | DI.CT.S_ITS ---
PROCEDURE: CT SOFT TISSUE NECK W CON INDICATIONS: PAIN. Metastatic breast cancer TECHNIQUE: After the administration of intravenous contrast, 3.0 mm axial sections acquired from the sella to the aortic arch. 3 mm thick coronal and sagittal reformats were generated. For radiation dose reduction, the following was used: automated exposure control. COMPARISON: [facility], CT, CT CHEST WITH CONTRAST, 02/01/2022, 14:45. [facility], CT, CT CHEST W CON, 04/08/2024, 12:24. FINDINGS: Skull Base: The visualized intracranial contents, skull, and orbits are unremarkable. Visualized paranasal sinuses are clear. Pharynx and Larynx: The nasopharyngeal airway is patent and midline. Parapharyngeal soft tissues including palatine tonsils and base of the tongue are normal. Retropharyngeal space unremarkable. Normal appearance of the false and true vocal cords. Muscles and Fascial Planes: Fascial planes are well maintained. No abscess or mass lesion. Lymph Nodes: No evidence of adenopathy. Vasculature: Atherosclerotic plaque results in greater than 50% stenosis in the proximal left ICA Submandibular and Parotid Glands: Normal in size and attenuation. Thyroid: Unremarkable. No enlarged or calcified nodules. Bones: Degenerative disc disease and arthropathy present with fused anterior osteophytes in the mid cervical spine. No lytic or blastic osseous lesion Lung Apices: Biapical pulmonary emphysema present with metastatic right apical nodule 1.7 cm. Irregular right apical pleural thickening is also neoplastic. Left pectoralis mass measures 2.5 cm. IMPRESSION: No evidence of metastatic disease in the neck proper. New right apical pulmonary nodule, irregular pleural disease, and left pectoralis mass lesion will be further discussed in the [facility] current CT chest report. Approved by: Prabhu Renteria M.D. on 04/08/2024 at 17:17
[2024-04-08 11:56] LABS: Estimated Glomerular Filt Rate > 60 mL/min (>60)
== END ==
LOC: RAD 10:56
PROVIDERS: Radiology Diagnostic Radiology; PCP Family Medicine; Referring Provider Family Medicine; Visit Provider Family Medicine
DX: C78.00 Secondary malignant neoplasm of unspecified lung; C77.1 Secondary and unspecified malignant neoplasm of intrathoracic lymph nodes; N63.41 Unspecified lump in right breast, subareolar; Z85.3 Personal history of malignant neoplasm of breast; Z90.12 Acquired absence of left breast and nipple; R91.8 Other nonspecific abnormal finding of lung field; M25.512 Pain in left shoulder; R13.10 Dysphagia, unspecified; R59.0 Localized enlarged lymph nodes; Z95.5 Presence of coronary angioplasty implant and graft
CPT/HCPCS: 70491; 71260; 82565; Q9967

== ENCOUNTER 2024-11-10 07:34 | Outpatient (CLI) | payer MEDICARE, OTHER, SELFPAY ==
[2021-11-08 16:22] VITALS: BMI 25.0
--- NOTE | 2024-11-10 | DI.RAD.S_ITS ---
PROCEDURE: XR CHEST 1V INDICATIONS: Post thoracentisis/expiration TECHNIQUE: One view of the chest was acquired. COMPARISON: Outside Facility, [facility], XR CHEST 2V, 10/29/2024, 16:55. FINDINGS: Mild right pleural effusion is decreased compared to the prior exam. Diffuse right pleural thickening is again noted unchanged. Mildly enlarged cardiopericardial silhouette mildly increased. Mildly prominent kurtis, enlarged hilar lymph nodes and or mild pulmonary vascular congestion mildly increased. Right apical pulmonary nodule measuring up to approximately 2 cm unchanged. No pneumothorax. IMPRESSION: No pneumothorax. Decreased right pleural effusion. Right pleural thickening, enlarged lymph nodes, right apical pulmonary nodule again noted. Continued follow-up is needed. Dictated by: Devang Cadena M.D. on 11/10/2024 at 9:47 Approved by: Devang Cadena M.D. on 11/10/2024 at 9:55
--- NOTE | 2024-11-10 07:36 | DI.US.S_ITS ---
PROCEDURE: US THORACENTESIS DIAGNOSTIC INDICATIONS: recurrent malignant neoplasm of left breast TECHNIQUE: The indications, alternatives, benefits, risks, and complications of the procedure were explained to the patient. Written informed consent was obtained and placed in the chart. The chest was examined sonographically, and an appropriate site was chosen for thoracentesis. The skin was prepared and draped in the usual sterile fashion, and 1% lidocaine was infiltrated from the skin down through the pleural surface. A 19- gauge catheter-covered needle was then introduced into the pleural space, the catheter was advanced and the needle was withdrawn, and thereafter pleural fluid was aspirated. The catheter was then removed and a dressing was applied. COMPARISON: None. FINDINGS: Access site: Right hemithorax. Needle: One-Step centesis catheter with introducer needle. Fluid volume and description: 1000 cc clear herminia colored fluid Fluid sent for diagnostic testing: Yes as ordered Medications: 1% lidocaine for local anaesthesia. Complications: None; post-procedural chest radiograph is pending to assess for pneumothorax. IMPRESSION: Successful ultrasound-guided thoracentesis. Dictated by: Devang Cadena M.D. on 11/11/2024 at 12:57 Approved by: Devang Cadena M.D. on 11/11/2024 at 12:58
[2024-11-10 08:20] VITALS: BP 174/79; PULSE 96; RESP 16; TEMP 36.6; O2SAT 97
[2024-11-10 08:47] LABS: INR 1.5 (0.9-1.3); Prothrombin Time 17.3 SECONDS (9.4-12.5)
[2024-11-10 08:50] LABS: PTT Partial Thromboplastin Tim 43 SECONDS (25.1-36.5)
[2024-11-10 09:00] VITALS: PULSE 92; RESP 20; O2SAT 96
[2024-11-10 09:10] VITALS: PULSE 87; RESP 20; O2SAT 98
[2024-11-10 09:12] VITALS: PULSE 88; RESP 20; O2SAT 98
[2024-11-10 09:13] VITALS: BP 132/60; PULSE 82; RESP 16; O2SAT 98
[2024-11-10 09:35] VITALS: PULSE 80; RESP 16; O2SAT 99
== END 2024-11-10 09:35 | disposition home or self-care (01) ==
LOC: US 07:35
PROVIDERS: Radiology Diagnostic Radiology; PCP Family Medicine; Referring Provider Internal Medicine Medical Oncology; Visit Provider Internal Medicine Medical Oncology
DX: C50.912 Malignant neoplasm of unspecified site of left female breast (principal); J90 Pleural effusion, not elsewhere classified; R91.1 Solitary pulmonary nodule; R59.0 Localized enlarged lymph nodes; Z17.0 Estrogen receptor positive status [ER+]
CPT/HCPCS: 32555; 71045; 85610; 85730

== ENCOUNTER → 2024-11-20 09:05 | Outpatient (CLI) | payer MEDICARE, OTHER, SELFPAY ==
[2021-11-08 16:22] VITALS: BMI 25.0
--- NOTE | 2024-11-20 09:06 | DI.ECHO.S_ITS ---
[facility] : : [address] : : [place] : : [id number] : : Phone: [phone] Echocardiogram Report + + :Name: EMELIA LUCERO Study Date: 11/20/2024 Height: 67 in : :[facility] ReadingLocation: Weight: 150 lb : : Gender: Female BSA: 1.8 m2 : :: 1945 Age: 79 yrs BP: 146/62 mmHg: :Reason For Study: CAD : :Ordering Physician: JUNE TEJEDA Performed By: Jarvis Hurst : :Referring: JUNE TEJEDA : + + Interpretation Summary 1. The left ventricular contractility is normal. Estimate ejection fraction is greater than 60% with septal bounce. Mild asymmetrical septal hypertrophy without obstruction. Normal diastolic function. 2. The right ventricular contractility is normal. 3. All cardiac chambers are normal size. 4. No significant valvular abnormalities. 5. No obvious intracardiac shunts. 6. No obvious intracardiac masses nor thrombi. 7. No hemodynamically significant pericardial effusion. 8. Low right-sided filling pressures. Conclusion: Normal biventricular function with no significant valvular abnormalities. When compared with previous echocardiogram, there appears to be improvement of the left ventricular systolic function. Procedure: A two-dimensional transthoracic echocardiogram with color flow and Doppler was performed. The study quality was technically adequate. Comparison is made with the echocardiogram of 04/19/2024. The patient was in normal sinus rhythm during the exam. Left Ventricle: The left ventricle is normal in size. There is normal left ventricular wall thickness. There is no ventricular septal defect visualized. The ejection fraction is estimated to be 60-65%. Right Ventricle: The right ventricle is normal in size and function. Atria: The left atrial size is normal. Right atrial size is normal. There is no Doppler evidence for an interatrial shunt. Mitral Valve: The mitral valve leaflets appear normal. There is no evidence of stenosis, fluttering, or prolapse. There is no mitral regurgitation noted. Aortic Valve: The aortic valve is trileaflet. The aortic valve opens well. There is no aortic regurgitation. Tricuspid Valve: The tricuspid valve leaflets are thin and pliable. No tricuspid regurgitation. Pulmonic Valve: The pulmonic valve is not well seen, but is grossly normal. There is no pulmonic valvular regurgitation. Great Vessels: The aortic root is normal size. The dimensions of the ascending aorta are normal. The pulmonary artery is normal size. The IVC is of normal diameter and collapses greater than 50% with a sniff. This suggests a low right atrial pressure of 3 mm Hg. Pericardium/ Pleura There is no pericardial effusion. There is no pleural effusion. MMode/2D Measurements & Calculations LVIDd: 4.3 cm LVOT diam: 2.0 cm LVIDs: 2.9 cm Ao root diam: 3.0 cm FS: 32.0 % asc Aorta Diam: 3.1 cm EPSS: 0.65 cm IVSd: 1.1 cm LVPWd: 0.95 cm LV chavez. diameter/BSA (cm/m^2): 2.4 LV sys. diameter/BSA (cm/m^2): 1.6 LA A2 area: 16.6 cm2 RA long axis: 3.7 cm LA A4 area: 12.6 cm2 RA area: 8.1 cm2 LA length (vol): 4.4 cm RA vol: 15.3 ml LA vol: 40.0 ml RA : 8.5 ml/m2 LA vol index: 22.4 ml/m2 IVC diam: 1.2 cm RVD1 (basal): 2.5 cm RVD2 (mid): 2.0 cm TAPSE: 1.8 cm Doppler Measurements & Calculations Ao V2 max: 126.1 cm/sec LVOT Max Kee: 101.4 cm/sec Ao V2 mean: 99.5 cm/sec LV V1 max P.1 mmHg Ao max P.4 mmHg LV V1 VTI: 20.0 cm Ao mean P.2 mmHg HALEIGH(I,D): 2.6 cm2 Ao V2 VTI: 24.1 cm HALEIGH(V,D): 2.5 cm2 sev ratio: 0.83 HALEIGH indexed to BSA (cm^2/m^2): 1.5 MV E max kee: 49.8 cm/sec PA V2 max: 113.5 cm/sec MV A max kee: 97.9 cm/sec PA V2 mean: 79.2 cm/sec MV E/A: 0.51 PA mean P.8 mmHg Med Peak E' Kee: 6.3 cm/sec PA pr(Accel): 55.0 mmHg E/E' med: 7.9 Lat Peak E' Kee: 7.4 cm/sec E/E' lat: 6.7 E/e' average: 7.3 MV dec time: 0.11 sec SV(LVOT): 62.7 ml Reading Physician:JAIDEN
== END ==
LOC: ECHO 09:06
PROVIDERS: PCP Family Medicine; Referring Provider Internal Medicine; Visit Provider Internal Medicine
DX: I25.10 Atherosclerotic heart disease of native coronary artery without angina pectoris (principal)
CPT/HCPCS: 93306